=== PATIENT | female | born 1955 | race Caucasian/White ===

== ENCOUNTER 2020-02-12 13:12 | Emergency (ER) | payer BC, OTHER ==
[~2020-02-12] VITALS: Ht 152.4 cm; Wt 68.0 kg
[~2020-02-12 13:12] MED LIST: ASPIR 8181 MG PO; ATENOLOL50 MG PO; BUSPIRONE HCL10 MG PO; FAMOTIDINE20 MG PO; SYNTHROID100 MCG PO; TRAZODONE HCL100 MG PO; ULTRAM 50MG50 MG PO
--- OUTSIDE RECORDS SUMMARY | 2020-02-12 13:36 | XMS REPORT | Continuity of Care Document ---
Author Author [facility] Organization [facility] Address [address] [place] [address] Phone Unavailable Care Team Providers Care Street Supervisor Name Role Phone Unavailable Unavailable Payers Payer Name Policy Type Policy Number Effective Date Expiration Date S ource Problems Condition Name Condition Details Condition Category Status Onset Date Resolution Date Last Treatment Date Treating Clinician Comments Source Disorder of thyroid gland Disorder of Thyroid Gland Problem Ac tive 2017-04-06 00:00:00 [facility] Generalized anxiety disorder Generalized Anxiety Disorder Problem Active 2017-04-06 00:00:00 [facility] Insomnia Insomnia Problem Active 2017-04-06 00:00:00 [facility] Restless legs Restless Legs Problem Active 2017-04-06 00:00:00 [facility] Benign essential hypertension Benign Essential Hypertension Problem Active 2017-04-06 00:00:00 [facility] Chronic obstructive lung disease Chronic Obstructive Lung Diseas e Problem Active 2017-04-06 00:00:00 [facility] Acid reflux Acid Reflux Problem Active 2017-04-06 00:00:00 [facility] Allergies, Adverse Reactions, Alerts Allergy Name Allergy Type Status Severity Reaction(s) Onset Date Inacti ve Date Treating Clinician Comments Source apple DA Active 2015-11-22 00:00:00 [facility] Shellfish DA Active 2015-11-22 00:00:00 [facility] codeine DA Active 2015-11-22 00:00:00 [facility] ibuprofen DA Active 2015-11-22 00:00:00 [facility] naproxen DA Active SV 2015-11-22 00:00:00 [facility] apple FA Active SV 2015-11-22 00:00:00 [facility] Codeine Allergy to substance Active [facility] Ibuprofen Allergy to substance Active [facility] [place] DERIVED Allergy to substance Active [facility] Social History Smoking Status Start Date Stop Date Source Former Smoker [facility] ractice Medications Ordered Medication Name Filled Medication Name Start Date Stop Da te Current Medication? Ordering Clinician Indication Dosage Frequency Signature (SIG) Comments Components Source Ventolin 90 mcg/actuation aerosol inhaler 2 PUFFS Q4HR S PRN Ventolin 90 mcg/actuation aerosol inhaler 2 PUFFS Q4HRS PRN 2019-09-01 00:00:00 No Ventolin 90 mcg/actuation aerosol inhaler [address] [facility] Aspir-81 1 tab daily Aspir-81 1 tab daily No Aspir-[address] [facility] B12 500 mg daily B12 500 mg daily No B12 [address] [facility] budesonide-formoterol HFA 160 mcg-4.5 mc g/actuation aerosol inhaler Inhale 2 puffs twice a day by inhalation route. budesonide-formoterol HFA 160 mcg-4.5 mcg/actuation aerosol inhaler Inhale 2 puffs twice a day by inhalation route. No budesonide-for moterol HFA 160 mcg-4.5 mcg/actuation aerosol inhaler Inhale 2 puffs twice a day by inhalation route. [facility] buspirone 10 mg tablet TAKE 1 TABLET BY MOUTH TWICE DA ARIANE buspirone 10 mg tablet TAKE 1 TABLET BY MOUTH TWICE DAILY No buspirone 10 mg tablet TAKE 1 TABLET BY MOUTH TWICE DAILY [facility] cetirizine 10 mg tablet TAKE 1 TABLET BY MOUTH AT BEDT [place] NEEDED cetirizine 10 mg tablet TAKE 1 TABLET BY MOUTH AT BEDTIME NEEDED No cetirizine 10 mg tablet TAKE 1 TABLET BY MOUTH AT BEDTIME NEEDED [facility] famotidine 20 mg tablet Take 1 tablet twice a day by o ral route for 90 days. famotidine 20 mg tablet Take 1 tablet twice a day by oral route for 90 days. No 1 BID famotidine 20 mg tablet Take 1 tablet twice a day by oral route for 90 days. [facility] ice fenofibrate 160 mg tablet TAKE 1 TABLET BY MOUTH ONCE DAILY. fenofibrate 160 mg tablet TAKE 1 TABLET BY MOUTH ONCE DAILY. No fenofibrate 160 mg tablet TAKE 1 TABLET BY MOUTH ONCE DAILY. [facility] gabapentin 400 mg capsule TAKE 1 CAPSULE BY MOUTH ONCE DAILY NEEDED gabapentin 400 mg capsule TAKE 1 CAPSULE BY MOUTH ONCE DAILY NEEDED No gabapentin 400 mg capsule TAKE 1 CAPSULE BY BEAR TH ONCE DAILY NEEDED [facility] levothyroxine 125 mcg tablet TAKE 1 TABL ET BY MOUTH ONCE DAILY DIRECTED FOR 90 DAYS levothyroxine 125 mcg tablet TAKE 1 TABL ET BY MOUTH ONCE DAILY DIRECTED FOR 90 DAYS No lev othyroxine 125 mcg tablet TAKE 1 TABLET BY MOUTH ONCE DAILY DIRECTED FOR [address] [facility] metoprolol tartrate 25 mg tablet Take 0. 5 tablets twice a day by oral route for 90 days. metoprolol tartrate 25 mg tablet Take 0. 5 tablets twice a day by oral route for 90 days. No .5 BID metop rolol tartrate 25 mg tablet Take 0.5 tablets twice a day by oral route for [address] [facility] multivitamin 1 tab daily multivitamin 1 tab daily No multivitamin 1 tab daily [facility] ice rosuvastatin 5 mg tablet Take 1 tablet every day by or al route for 90 days. rosuvastatin 5 mg tablet Take 1 tablet every day by oral route for 90 days. No 1 Q1D rosuvastatin 5 mg tablet Take 1 tablet every day by oral route for 90 days. [facility] ice trazodone 100 mg tablet TAKE 1/2 TO 1 (O NE-HALF TO ONE) TABLET BY MOUTH AT BEDTIME NEEDED trazodone 100 mg tablet TAKE 1/2 TO 1 (O NE-HALF TO ONE) TABLET BY MOUTH AT BEDTIME NEEDED No trazodone 100 mg tablet TAKE 1/2 TO 1 (ONE-HALF TO ONE) TABLET BY MOUTH AT BEDTIME NEEDED [facility] Immunizations Ordered Immunization Name Filled Immunization Name Date Status Comments Source Tdap Tdap 2013-03-23 00:00:00 Cassie Ornelas [facility] Vital Signs Vital Name Observation Time Observation Value Comments Source Height 2019-09-01 00:00:00 57.9 [in_i] [facility] BP Diastolic 2019-03-25 00:00:00 66 mm[Hg] [facility] Height 2019-03-25 00:00:00 57.9 [in_i] [facility] BMI (Body Mass Index) 2019-03-25 00:00:00 27.4 kg/m2 [facility] BP Systolic 2019-03-25 00:00:00 116 mm[Hg] [facility] Body Weight 2019-03-25 00:00:00 130.8 [lb_av] [facility] BP Diastolic 2019-03-03 00:00:00 68 mm[Hg] [facility] Height 2019-03-03 00:00:00 57.9 [in_i] [facility] BMI (Body Mass Index) 2019-03-03 00:00:00 27.6 kg/m2 [facility] BP Systolic 2019-03-03 00:00:00 108 mm[Hg] [facility] Body Weight 2019-03-03 00:00:00 131.6 [lb_av] [facility] BP Diastolic 2018-10-27 00:00:00 70 mm[Hg] [facility] Height 2018-10-27 00:00:00 57.9 [in_i] [facility] BMI (Body Mass Index) 2018-10-27 00:00:00 27.7 kg/m2 [facility] BP Systolic 2018-10-27 00:00:00 104 mm[Hg] [facility] Body Weight 2018-10-27 00:00:00 132 [lb_av] [facility] BP Diastolic 2018-07-27 00:00:00 60 mm[Hg] [facility] Height 2018-07-27 00:00:00 57.9 [in_i] [facility] BMI (Body Mass Index) 2018-07-27 00:00:00 27.6 kg/m2 [facility] BP Systolic 2018-07-27 00:00:00 112 mm[Hg] [facility] Body Weight 2018-07-27 00:00:00 131.6 [lb_av] [facility] BP Diastolic 2018-04-26 00:00:00 66 mm[Hg] [facility] Height 2018-04-26 00:00:00 57.9 [in_i] [facility] BMI (Body Mass Index) 2018-04-26 00:00:00 27.3 kg/m2 [facility] BP Systolic 2018-04-26 00:00:00 110 mm[Hg] [facility] Body Weight 2018-04-26 00:00:00 130.2 [lb_av] [facility] BP Diastolic 2017-07-06 00:00:00 80 mm[Hg] [facility] Height 2017-07-06 00:00:00 57.9 [in_i] [facility] BMI (Body Mass Index) 2017-07-06 00:00:00 28.9 kg/m2 [facility] BP Systolic 2017-07-06 00:00:00 112 mm[Hg] [facility] Body Weight 2017-07-06 00:00:00 138 [lb_av] [facility] BP Diastolic 2017-04-06 00:00:00 80 mm[Hg] [facility] Height 2017-04-06 00:00:00 57.9 [in_i] [facility] BMI (Body Mass Index) 2017-04-06 00:00:00 28.7 kg/m2 [facility] BP Systolic 2017-04-06 00:00:00 140 mm[Hg] [facility] Body Weight 2017-04-06 00:00:00 137 [lb_av] [facility] Procedures Procedure Date / Time Performed Performing Clinician [facility] e MAMMO, screening, digital, bilateral 2018-10-27 00:00:00 [facility] electrocardiogram 2018-07-27 00:00:[address] [facility] MAMMO, screening, digital, bilateral 2017-04-06 00:00:00 [facility] Hysterectomy (Partial) 1989-03-23 [facility]:00:[address] [facility] Caesarean Section 1980-03-23 00:00:[address] [facility] Caesarean Section 1979-03-23 00:00:[address] [facility] Partial Hysterectomy [facility] Delivery [facility] Plan of Care Planned Activity Planned Date Details Comments Source Diagnostic Test Pending 2019-09-01 00:00:00 lipid panel, ser um [code = lipid panel, serum] [facility] Diagnostic Test Pending 2019-09-01 00:00:00 CMP, serum or pl asma [code = CMP, serum or plasma] [facility] Diagnostic Test Pending 2019-09-01 00:00:00 microalbumin/cre atinine, mass ratio, urine [code = microalbumin/creatinine, mass ratio, urine] [facility] Diagnostic Test Pending 2019-09-01 00:00:00 CBC w/ auto diff [code = CBC w/ auto diff] [facility] Encounters Start Date/Time End Date/Time Encounter Type Admission Type [facility] Care Department Encounter ID Source 2019-09-01 00:00:00 2019-09-01 00:00:00 Lita Abrams MD: [address], [address], [place] [address], Ph. [facility] - [facility] ([facility]) [id number] [facility] 2019-06-17 00:00:00 2019-06-17 00:00:00 Deonna Coles, DO: [address], [address], [place] [address], Ph. [facility] - [facility] ([facility]) [id number] [facility] e 2019-03-25 00:00:00 2019-03-25 00:00:00 Shane Neri , DO: [address] [place] [address], Ph. [facility] - [facility] [id number] [facility] 2019-03-03 00:00:00 2019-03-03 00:00:00 Shane Neri , DO: [address] [place] [address], Ph. [facility] - [facility] [id number] [facility] 2018-10-27 00:00:00 2018-10-27 00:00:00 Sander abel MD: [address] [place] [address], Ph. [facility] [place] [facility] [id number] [facility] 2018-07-27 00:00:00 2018-07-27 00:00:00 Sander abel MD: [address] [place] [address], Ph. [facility] [id number] [facility] 2018-05-18 00:00:00 2018-05-18 00:00:00 Sander abel MD: [address] [place] [address], Ph. [facility] [id number] [facility] 2018-04-26 00:00:00 2018-04-26 00:00:00 Sander abel MD: [address] [place] [address], Ph. [facility] [id number] [facility] 2017-07-06 00:00:00 2017-07-06 00:00:00 Sander abel MD: [address] [place] [address], Ph. [facility] [id number] [facility] 2017-04-06 00:00:00 2017-04-06 00:00:00 Sander abel MD: [address] [place] [address], Ph. [facility] [id number] [facility] Results Test Description Test Time Test Comments Results Result Comments Source Lipid 1996 panel - Serum or Plasma 2019-03-04 04:32:00 Test Item cholesterol, total (test code = cholesterol, total) 129 mg/dL <2 00 HDL cholesterol (test code = HDL cholesterol) 9 mg/dL >50 L triglycerides (test code = triglycerides) 236 mg/dL <150 H Cholesterol in LDL [Mass/volume] in Serum or Plasma (t est code = 2089-1) 87 mg/dL (calc) chol/HDLC ratio (test code = chol/HDLC ratio) 14.3 (calc) <5.0 H non HDL cholesterol (test code = non HDL cholesterol) 120 mg/dL (ca lc) <130 [facility] free [Mass/volume] in Serum or Plasma 2019-03-04 04:32:00* Test Item Value Reference Range Interpretation Comments T4, free (test code = T4, free) 1.8 NG/dL 0.8-1.8 [facility] [Units/volume] in Serum or [id number] 04:32:00* Test Item Value Reference Range Interpretation Comments TSH (test code = TSH) 2.20 mIU/L 0.40-4.50 [facility]- US ABDOMEN [id number] 11:53:00 Name: LEONOR BLACK [facility] : 1955 Age/S: 63 / F [address] [place] [address] Blvd Unit #: [id number] Loc: [place] [address] Phys: Ayla Lunsford MD Acct: [id number] Di s Date: Status: REG CLI PHONE #: Exam Date: 12/09/2018 1428 FAX #: Reason: 070.54, B18.2, CHRONIC HEP C. EXAMS: CPT CODE: [id number] [facility] ABDOMEN [facility] [address] EXAMINATION: Abdominal Ul trasound EXAM DATE: December 09, 2018. CLINICAL HIS TORY:070.54, B18.2, CHRONIC HEP C.. COMPARISON: None available. Realtime sonographic evaluation of the abdomen was performed. The liver is within normal limits in size and sonographic appearance with out evidence of mass or intrahepatic biliary ductal dilatation. No focal abnormalities are noted. The liver measures 15.6 mm in length. The s pleen is unremarkable.. The spleen measures 10.6 cm in length. The g allbladder is also within normal limits in appearance. There is no eviden ce of cholelithiasis, gallbladder wall thickening, or pericholecystic flui d. The common bile duct is within normal limits measuring 0.4 cm in AP diameter. Visualized portions of the pancreas are unremarkable. The right kidney measures 8.5 cm.The left kidney measures 9.4 cm. Both kidneys are within normal limits in size and sonographic appearanc e without evidence of mass, hydronephrosis, or calculi. No free f luid is present. The aorta and IVC are unremarkable in the visuali zed portions. IMPRESSION: No sonographic abnormalities identified. at 1153 Reported and signed by: Trisha Fontana M.D. CC: Sander Sutherland MD; Ayla Lunsford MD Technologist: Alycia Casillas RDMS(OB)(B R) Trnscb Date/Time: 12/09/2018 (0343) [email or web address] Orig Print D/T: S: 12/09/2018 (1423) Probe: PAGE 1 Signed Report Comprehensive metabolic 2000 panel - Serum or [id number] 10:30:00* Test Item Value Reference Range Interpretation Comments glucose (test code = glucose) 149 mg/dL 65-99 H urea nitrogen (BUN) (test code = urea nitrogen (BUN)) 19 mg/dL 7-25 creatinine (test code = creatinine) 0.88 mg/dL 0.50-0.99 eGFR non-afr. kyrgyz (test code = eGFR non-afr. kyrgyz) 70 mL/min/1.73m2 > or = 60 eGFR (test code = eGFR ) 82 mL/min/1.73m2 > or = 60 BUN/creatinine ratio (test code = BUN/creatinine ratio) not applica ble 6-22 sodium (test code = sodium) 141 mmol/L 135-146 potassium (test code = potassium) 4.8 mmol/L 3.5-5.3 chloride (test code = chloride) 106 mmol/L 98-110 carbon dioxide (test code = carbon dioxide) 24 mmol/L 20-32 calcium (test code = calcium) 9.3 mg/dL 8.6-10.4 protein, total (test code = protein, total) 6.9 g/dL 6.1-8.1 albumin (test code = albumin) 4.1 g/dL 3.6-5.1 globulin (test code = globulin) 2.8 g/dL (calc) 1.9-3.7 albumin/globulin ratio (test code = albumin/globulin ratio) 1.5 (calc) 1.0-2.5 bilirubin, total (test code = bilirubin, total) 0.3 mg/dL 0.2-1. 2 alkaline phosphatase (test code = alkaline phosphatase) 58 U/L 33-130 AST (test code = AST) 23 U/L 10-35 ALT (test code = ALT) 15 U/L 6-29 [facility] - Serum or [id number] 10:30:00* Test Item Value Reference Range Interpretation Comments cholesterol, total (test code = cholesterol, total) 110 mg/dL <2 00 HDL cholesterol (test code = HDL cholesterol) 7 mg/dL >50 L triglycerides (test code = triglycerides) 205 mg/dL <150 H Cholesterol in LDL [Mass/volume] in Serum or Plasma (t est code = 2089-1) 73 mg/dL (calc) chol/HDLC ratio (test code = chol/HDLC ratio) 15.7 (calc) <5.0 H non HDL cholesterol (test code = non HDL cholesterol) 103 mg/dL (ca lc) <130 [facility] 1999 panel - Serum or Plasma 2018-04-27 10:30:00* Test Item Value Reference Range Interpretation Comments glucose (test code = glucose) 149 mg/dL 65-99 H urea nitrogen (BUN) (test code = urea nitrogen (BUN)) 19 mg/dL 7-25 creatinine (test code = creatinine) 0.88 mg/dL 0.50-0.99 eGFR non-afr. kyrgyz (test code = eGFR non-afr. kyrgyz) 70 mL/min/1.73m2 > or = 60 eGFR (test code = eGFR ) 82 mL/min/1.73m2 > or = 60 BUN/creatinine ratio (test code = BUN/creatinine ratio) not applica ble 6-22 sodium (test code = sodium) 141 mmol/L 135-146 potassium (test code = potassium) 4.8 mmol/L 3.5-5.3 chloride (test code = chloride) 106 mmol/L 98-110 carbon dioxide (test code = carbon dioxide) 24 mmol/L 20-32 calcium (test code = calcium) 9.3 mg/dL 8.6-10.4 protein, total (test code = protein, total) 6.9 g/dL 6.1-8.1 albumin (test code = albumin) 4.1 g/dL 3.6-5.1 globulin (test code = globulin) 2.8 g/dL (calc) 1.9-3.7 albumin/globulin ratio (test code = albumin/globulin ratio) 1.5 (calc) 1.0-2.5 bilirubin, total (test code = bilirubin, total) 0.3 mg/dL 0.2-1. 2 alkaline phosphatase (test code = alkaline phosphatase) 58 U/L 33-130 AST (test code = AST) 23 U/L 10-35 ALT (test code = ALT) 15 U/L 6-29 [facility] - Serum or [id number] 10:30:00* Test Item Value Reference Range Interpretation Comments cholesterol, total (test code = cholesterol, total) 110 mg/dL <2 00 HDL cholesterol (test code = HDL cholesterol) 7 mg/dL >50 L triglycerides (test code = triglycerides) 205 mg/dL <150 H Cholesterol in LDL [Mass/volume] in Serum or Plasma (t est code = 2089-1) 73 mg/dL (calc) chol/HDLC ratio (test code = chol/HDLC ratio) 15.7 (calc) <5.0 H non HDL cholesterol (test code = non HDL cholesterol) 103 mg/dL (ca lc) <130 [facility] [Units/volume] in Serum or [id number] 08:05:00* Test Item Value Reference Range Interpretation Comments TSH (test code = TSH) 1.84 mIU/L 0.40-4.50 [facility] [Units/volume] in Serum or [id number] 08:05:00* Test Item Value Reference Range Interpretation Comments TSH (test code = TSH) 1.84 mIU/L 0.40-4.50 [facility] 2000 panel - Serum or Plasma 2017-04-08 15:33:00* Test Item Value Reference Range Interpretation Comments ALT (test code = ALT) 24 U/L 0-55 AST (test code = AST) 26 U/L 5-34 BUN (test code = BUN) 13.1 mg/dL 9.8-20.1 alk phos (test code = alk phos) 81 unit/L 40-150 glucose (test code = glucose) 79 mg/dL 70-99 albumin (test code = albumin) 4.1 g/dL 3.5-5.0 creatinine (test code = creatinine) 0.73 mg/dL 0.57-1.11 eGFR non- (test code = eGFR non-) > 60 >60 total bilirubin (test code = total bilirubin) 0.5 mg/dL 0.2-1.2 eGFR - (test code = eGFR - ) >60 >60 sodium (test code = sodium) 138 mEq/L 136-145 potassium (test code = potassium) 4.4 mEq/L 3.5-5.1 chloride (test code = chloride) 104 mmol/L 98-107 total protein (test code = total protein) 7.4 g/dL 6.4-8.3 calcium (test code = calcium) 8.9 mg/dL 8.4-10.2 CO2 (test code = CO2) 23.1 mmol/L 23.0-31.0 anion gap (test code = anion gap) [address] [facility] - Serum or [id number] 15:33:00* Test Item Value Reference Range Interpretation Comments HDL (test code = HDL) 23 mg/dL 40-60 L triglyceride (test code = triglyceride) 200 mg/dL 0-149 H VLDL calc. (test code = VLDL calc.) 40 mg/dL cholesterol/HDL ratio (test code = cholesterol/HDL ratio) 7.2 mg/dL non-HDL cholesterol calc. (test code = non-HDL cholesterol c alc.) 143 mg/dL 0-160 cholesterol (test code = cholesterol) 166 mg/dL 0-199 LDL calc. (test code = LDL calc.) 103 mg/dL 0-130 [facility] [Units/volume] in Serum or [id number] 15:33:00* Test Item Value Reference Range Interpretation Comments TSH (test code = TSH) 4.466 uIU/mL 0.350-4.940 [facility]
--- NOTE | 2020-02-12 13:49 | Emergency Department Note ---
History of Present Illnes History of Present Illness Chief Complaint: General Medicine Complaints History of Present Illness This is a 64 year old female arrived to the ED with complaints of pain or right ankle after sustaining an eversion injury while stepping off the curb of her block. . Chief Complaint Comment PATIENT IN FROM HOME WITH COMPLAINTS OF RIGHT ANKLE PAIN AND SWELLING SINCE THIS MORNING; STATES THAT SHE WAS GETTING THE MAIL OUT OF HER YARD, STEPPED IN A HOLE AND ROLLED HER RIGHT ANKLE. PATIENT AMBULATORY WITH A LIMP, APPEARS IN NO DISTRESS, RATES PAIN 11/30 Historian: Patient Arrival Mode: Car Onset (how long ago): day(s) Severity: moderate Onset quality: sudden Duration (how long): hour(s) Timing of current episode: constant Progression: unchanged Chronicity: new Context: Reports trauma/injury Relieving factors: rest Exacerbating factors: movement Past Medical/Family History Physician Review I have reviewed the patient's past medical and family history. Any updates have been documented here. Past Medical History Recent Fever: No Clinical Suspicion of Infectio: No New/Unexplained Change in Ment: No Past Medical History: Hypertension, COPD, Hypothyroidism, Anxiety, Depression, GERD, Hyperlipedemia Other Medical History: ANXIETY, REFLUX Past Surgical History: Hysterectomy, Other Surgery: Social History Physically hurt or threatened: No Other Last Tetanus: 2009 Review of Systems Review of Systems Constitutional: Reports no symptoms EENTM: Reports no symptoms Cardiovascular: Reports no symptoms Respiratory: Reports no symptoms Gastrointestinal: Reports no symptoms Genitourinary: Reports no symptoms Musculoskeletal: Reports as per HPI, Reports joint pain, Reports joint swelling Integumentary: Reports no symptoms Neurological: Reports no symptoms Psychological: Reports no symptoms Endocrine: Reports no symptoms Hematological/Lymphatic: Reports no symptoms Physical Exam Related Data Allergies: Coded Allergies: codeine (Verified Allergy, Severe, WELPS, 02/12/20) ibuprofen (Verified Allergy, Intermediate, ITCHING, 02/12/20) Shellfish (Verified Allergy, Mild, 02/12/20) Triage Vital Signs Vital Signs Date Time Temp Pulse Resp B/P (MAP) Pulse Ox O2 Delivery O2 Flow Rate FiO2 02/12/20 13:19 97.7 55 20 147/61 99 Room Air Vital signs reviewed: Yes Physical Exam CONSTITUTIONAL Constitutional: Present well-developed, Present well-nourished HENT HENT: Present normocephalic, Present atraumatic, Present oropharynx clear/moist, Present nose normal HENT L/R: Present left ext ear normal, Present right ext ear normal EYES Eyes: Reports PERRL, Reports conjunctivae normal NECK Neck: Present ROM normal PULMONARY Pulmonary: Present effort normal, Present breath sounds normal CARDIOVASCULAR Cardiovascular: Present regular rhythm, Present heart sounds normal, Present capillary refill normal, Present normal rate GASTROINTESTINAL Abdominal: Present soft, Present nontender, Present bowel sounds normal GENITOURINARY Genitourinary: Present exam deferred SKIN Skin: Present warm, Present dry MUSCULOSKELETAL Musculoskeletal: Present tenderness, Present swelling (tenderness and swelling noted over lateral malleolus of right lower extremity, Capillary refill <2seco nds and distal Sensation to light touch in tact per routine) NEUROLOGICAL Neurological: Present alert, Present oriented x 3, Present no gross motor or sensory deficits PSYCHOLOGICAL Psychological: Present mood/affect normal, Present judgement normal Assessment & Plan Medical Decision Making MDM Workup: XR Ankle Findings: No fracture or dislocation Presentation most consistent with Ankle Sprain. Patient does not currently demonstrate complications of sprain such as compartment syndrome, arterial or nerve injury. Disposition: Discharge. Supportive bracing provided. WBAT. RICE. Strict return precautions and instructions to follow up with primary MD within 24-48 hours for further evaluation Assessment & Plan Final Impression: (1) Ankle sprain Depart Disposition: HOME, SELF-CARE Last Vital Signs Date Time Temp Pulse Resp B/P (MAP) Pulse Ox O2 Delivery O2 Flow Rate FiO2 02/12/20 13:19 97.7 55 20 147/61 99 Room Air Home Meds Active Scripts Tramadol Hcl (ULTRAM) 50 Mg Tablet, 50 MG PO Q6HR PRN for Mild Pain (1-3) or Fever>100.8, #14 TAB Prov:DARYN DELGADO, 02/12/20 Reported Medications Aspirin (ASPIR 81) 81 Mg Tablet.dr, 81 MG PO DAILY 06/05/14 Buspirone Hcl (BUSPIRONE HCL) 10 Mg Tablet, 10 MG PO TID 06/05/14 Trazodone Hcl (TRAZODONE HCL) 100 Mg Tablet, 100 MG PO BEDTIME 06/05/14 Famotidine (FAMOTIDINE) 20 Mg Tab, 20 MG PO DAILY, #30 TAB 06/05/14 Atenolol (ATENOLOL) 50 Mg Tablet, 25 MG PO DAILY 06/05/14 Tramadol Hcl* (ULTRAM 50MG*) 50 Mg Tab, 50 MG PO PRN, TAB 06/05/14 Levothyroxine Sodium (SYNTHROID) 100 Mcg Tab, 100 MCG PO DAILY, #30 TAB 06/05/14 DARYN DELGADO, Feb 12, 2020 13:49
[2020-02-12] MEDS: HYDROCODONE/APAP 7.5MG-325MG 1 EA TAB PO PRN (14:16)
--- NOTE | 2020-02-12 14:52 | Diagnostic Imaging Report ---
X-ray 3 views of the ankle. HISTORY: Pain. COMPARISON: None available. FINDINGS: Bones: No acute displaced fracture. Osseous alignment is within normal limits. Joints: The joint spaces are well-maintained. Soft tissues: The soft tissues appear unremarkable. IMPRESSION: No acute radiographic abnormality. Signed by: Marcos Linton MD on 02/12/2020 2:49 PM
[2020-02-12] MEDS ORDERED: ULTRAM50 MG PO (14:59)
== END 2020-02-12 17:01 | disposition home or self-care (01) ==
LOC: ER 13:34
DX: S93.401A Sprain of unspecified ligament of right ankle, initial encounter (principal); X50.1XXA Overexertion from prolonged static or awkward postures, initial encounter; Y93.01 Activity, walking, marching and hiking; Y92.480 Sidewalk as the place of occurrence of the external cause; I10 Essential (primary) hypertension; E78.5 Hyperlipidemia, unspecified; K21.9 Gastro-esophageal reflux disease without esophagitis; F41.9 Anxiety disorder, unspecified
CPT/HCPCS: 99283